=== PATIENT | female | born 1995 | race Caucasian/White ===

== ENCOUNTER 2017-05-18 04:49 | Emergency (ER) | payer OTHER ==
[~2017-05-18] VITALS: Ht 157.5 cm; Wt 54.3 kg
[2017-05-18 05:04] VITALS: BP 123/80; PULSE 120; RESP 14; TEMP 98.9; O2SAT 97
[2017-05-18] MEDS ORDERED: BENZ1CAP51 PO (05:15)
[2017-05-18] MEDS ORDERED: ZITHTAB PO (05:15)
[2017-05-18] MEDS ORDERED: SPRI28TA PO (05:15)
--- NOTE | 2017-05-18 05:39 | PD ---
HPI Chief Complaint: Cold / Flu Symptoms Time Seen by Provider: 04:59 Travel History International Travel<30 days: No Contact w/Intl Traveler<30days: No Traveled to known affect area: No History of Present Illness HPI pt is 21 yr old female with no pmhx and comes in complianing that coughing congestion for 1 week , was seen in Urgent care and given tensilon pearls and azithromycin , pt reports no relief from the tensilon pearls and has 1 day left of the z-ruben. still no improvement , pt has no fever no sore throat no diarrhea no CP only cough excessive inspite of treatment PFSH Past Medical History Medical History: Denies Significant Hx Tetanus Vaccination: > 5 Years Influenza Vaccination: No ?: Not LMP: 05/01/17 : 0 Past Surgical History Surgical History: No Previous Surgery Social History Alcohol Use: No Tobacco Use: No Substance Use: No Allergies-Medications (Allergen,Severity, Reaction): Coded Allergies: No Known Allergies (Unverified , 05/18/17) Reported Meds & Prescriptions Reported Meds & Active Scripts Active Ibuprofen 600 Mg Tab 600 Mg PO Q6H PRN Guaifenesin AC Liq (Guaifenesin-Codeine Liq) 100-10 Mg/5 Ml Syrp 10 Ml PO Q6H PRN Pseudoephedrine (Pseudoephedrine HCl) 60 Mg Tab 60 Mg PO Q6H PRN Tamiflu (Oseltamivir Phosphate) 75 Mg Cap 75 Mg PO BID Atrovent HFA 12.9 GM Inh (Ipratropium [employer]) 17 Mcg/Actuation Aer 2 Puff INH Q6HR PRN Reported Sprintec 28 (Norgestimate-Ethinyl Estradiol) 0.25-35 mg-Mcg Tab 1 Tab PO DAILY Benzonatate 200 Mg Cap 200 Mg PO TID PRN Zithromax Z-Ruben (Azithromycin) 250 Mg Dspk 250 Mg PO DIRECTED 500 MG (2 tabs) day 1, then 1 tab days 2-5. Review of Systems Except as stated in HPI: all other systems reviewed are Neg Physical Exam Narrative GENERAL: coughing repeatedly during her exam SKIN: Warm and dry. HEAD: Atraumatic. Normocephalic. EYES: Pupils equal and round. No scleral icterus. No injection or drainage. ENT: No nasal bleeding or discharge. Mucous membranes pink and moist. NECK: Trachea midline. No JVD. CARDIOVASCULAR: Regular rate and rhythm. RESPIRATORY: No accessory muscle use. excessive coughing during her entire visit in ER. GASTROINTESTINAL: Abdomen soft, non-tender, nondistended. Hepatic and splenic margins not palpable. MUSCULOSKELETAL: Extremities without clubbing, cyanosis, or edema. No obvious deformities. NEUROLOGICAL: Awake and alert. No obvious cranial nerve deficits. Motor grossly within normal limits. Five out of 5 muscle strength in the arms and legs. Normal speech. PSYCHIATRIC: Appropriate mood and affect; insight and judgment normal. Data Data Last Documented VS Vital Signs Date Time Temp Pulse Resp B/P (MAP) Pulse Ox O2 Delivery O2 Flow Rate FiO2 05/18/17 05:04 98.9 120 14 123/80 (94) 97 Orders Orders Influenzae A/B Antigen (05/18/17 05:13) Group A Rapid Strep Screen (05/18/17 05:13) Guaifen-Cod 200-20 Mg/10ml Liq (Robituss (05/18/17 05:45) Ipratropium Neb (Atrovent Neb) (05/18/17 05:45) Strep Culture (Group A) (05/18/17 05:20) Ibuprofen (Motrin) (05/18/17 06:00) Oseltamivir (Tamiflu) (05/18/17 06:00) MDM Medical Decision Making Medical Screen Exam Complete: Yes Emergency Medical Condition: Yes Differential Diagnosis Differential diagnosis includes bronchitis viral versus influenza versus strep throat versus Narrative Course Pt has influenza and treated with Tamiflu and Atrovent neb while she is here discharged her with Tamiflu twice daily 5 days as well as ibuprofen every 6 hours for the pains and symptoms as well as Sudafed and Robitussin-AC Diagnosis Primary Impression: Bronchitis Additional Impression: Influenza A Patient Instructions: General Instructions, Influenza (ED) Scripts Ibuprofen (Ibuprofen) 600 Mg Tab 600 MG PO Q6H Y for Pain/Inflammation, #40 TAB 0 Refills Prov: Sylvain Cristobal MD 05/18/17 Guaifenesin-Codeine Liq (Guaifenesin AC Liq) 100-10 Mg/5 Ml Syrp 10 ML PO Q6H Y for COUGH, #1 BOTTLE 0 Refills Prov: Sylvain Cristobal MD 05/18/17 Pseudoephedrine (Pseudoephedrine) 60 Mg Tab 60 MG PO Q6H Y for NASAL CONGESTION, #12 TAB 0 Refills Prov: Sylvain Cristobal MD 05/18/17 Oseltamivir (Tamiflu) 75 Mg Cap 75 MG PO BID for Mgmt Viral Infection, #10 CAP 0 Refills Prov: Sylvain Cristobal MD 05/18/17 Ipratropium HFA 12.9 GM Inh (Atrovent HFA 12.9 GM Inh) 17 Mcg/Actuation Aer 2 PUFF INH Q6HR Y for SHORTNESS OF BREATH, #1 INHALER 0 Refills Prov: Sylvain Cristobal MD 05/18/17 Disposition: 01 DISCHARGE HOME Condition: Good Sylvain Cristobal MD May 18, 2017 05:39
[2017-05-18] MEDS ORDERED: RESP: IPRATROPIUM 0.5 MG/2.5 ML NEB NEB ONE (05:45)
[2017-05-18] MEDS ORDERED: guaiFENesin/CODEINE SYRUP 200 MG/20 MG/10 ML CUP PO ONE (05:45)
[2017-05-18] MEDS ORDERED: GUAISYP4 PO (05:54)
[2017-05-18] MEDS ORDERED: OSEL75 PO (05:54)
[2017-05-18] MEDS ORDERED: SUDO60TA2 PO (05:54)
[2017-05-18] MEDS ORDERED: IPRA17I INH (05:54)
[2017-05-18] MEDS ORDERED: OSELTAMIVIR PHOSPHATE 75 MG CAP PO ONE (06:00)
[2017-05-18] MEDS ORDERED: IBUPROFEN 600 MG TAB PO ONE (06:00)
[2017-05-18] MEDS ORDERED: IBUP-232 PO (06:04)
[2017-05-18 06:11] VITALS: PULSE 95; RESP 18; O2SAT 97
== END 2017-05-18 06:24 | disposition home or self-care (01) ==
LOC: PHED 04:49
DX: J40 Bronchitis, not specified as acute or chronic (principal); J09.X2 Influenza due to identified novel influenza A virus with other respiratory manifestations
CPT/HCPCS: 87081; 87804; 87880; 94664; 99284; J7644